=== PATIENT | female | born 1980 | race Caucasian/White ===

== ENCOUNTER 2020-08-20 07:09 | Emergency (ER) | payer OTHER ==
[~2020-08-20 07:09] MED LIST: ANTI-DIARRHEAL2 MG PO; AUGMENTIN 875-1 EACH PO; BENTYL10 MG PO; DIFLUCAN150 MG PO; NORCO 5-325 TA1 EACH PO; ZOFRAN4 MG SL
[2020-08-20] MEDS ORDERED: ETODOLAC500 MG PO (08:04)
[2020-08-20] MEDS ORDERED: TRAMADOL HCL50 MG PO (08:04)
== END 2020-08-20 08:47 | disposition home or self-care (01) ==
LOC: FER 07:09
DX: S89.92XA Unspecified injury of left lower leg, initial encounter (principal); F17.200 Nicotine dependence, unspecified, uncomplicated; W19.XXXA Unspecified fall, initial encounter; Y92.009 Unspecified place in unspecified non-institutional (private) residence as the place of occurrence of the external cause
CPT/HCPCS: 73564

== ENCOUNTER 2020-09-29 06:40 | Inpatient (IN) | payer OTHER ==
[~2020-09-29 06:40] MED LIST changes: +ETODOLAC500 MG PO; +TRAMADOL HCL50 MG PO
[2020-09-29 07:44] LABS: BASOPHIL 1.1 % (0-2); EOSINOPHIL 0.4 % (0-5); HCT 35.5 % (37.0-47.0); HGB 12.3 g/dl (12.5-16.0); LYMPHOCYTE 13.3 % (15-48); MCH 34.3 pg (25.0-31.0); MCHC 34.6 g/dL (32.0-36.0); MCV 98.9 fL (78.0-100.0); MONOCYTE 11.3 % (0-12); MPV 11.1 fL (6.0-9.5); NEUTROPHIL 73.5 % (41-80); NRBC 0; PLT 172 K/uL (150-400); RBC 3.59 M/uL (4.20-5.40); RDW 18.5 % (11.5-14.0); WBC 7.6 K/uL (4.0-10.5)
[2020-09-29 07:45] LABS: BILIRUBIN 3+ mg/dL (NEGATIVE); BLOOD NEGATIVE Ery/uL (NEGATIVE); CLARITY CLEAR (CLEAR); GLUCOSE (U) TRACE mg/dL (NORMAL); LEUKOCYTES NEGATIVE Leu/uL (NEGATIVE); NITRITE POSITIVE (NEGATIVE); PROTEIN 1+ mg/dL (NEGATIVE); SPECIFIC GRAVITY 1.025 (1.001-1.030)
[2020-09-29 07:46] LABS: COLOR AMBER (YELLOW)
[2020-09-29 07:53] LABS: BACTERIA 1+; URINARY RBC RARE
[2020-09-29 07:57] LABS: INR 1.1 (0.9-1.2); PROTHROMBIN TIME 13.5 SECONDS (11.4-13.6)
[2020-09-29 08:00] LABS: ALBUMIN 2.4 g/dL (3.4-5.0); BILIRUBIN - TOTAL 11.6 mg/dL (0.2-1.0); BUN/CREAT RATIO (CALC) 9.3 RATIO; CREATININE 0.54 mg/dL (0.51-0.95); GLOBULIN (CALCULATION) 4.3 g/dL; TOTAL PROTEIN 6.7 g/dL (6.4-8.2)
[2020-09-30 06:27] LABS: BASOPHIL 0.7 % (0-2); EOSINOPHIL 0.9 % (0-5); HCT 29.1 % (37.0-47.0); HGB 9.9 g/dl (12.5-16.0); LYMPHOCYTE 16.5 % (15-48); MCH 34.3 pg (25.0-31.0); MCV 100.7 fL (78.0-100.0); MONOCYTE 12.7 % (0-12); MPV 11.4 fL (6.0-9.5); NEUTROPHIL 68.8 % (41-80); NRBC 0; PLT 138 K/uL (150-400); RBC 2.89 M/uL (4.20-5.40); RDW 19.2 % (11.5-14.0); WBC 5.6 K/uL (4.0-10.5)
[2020-09-30 06:40] LABS: INR 1.26 (0.9-1.2)
[2020-09-30 06:50] LABS: ALBUMIN 1.8 g/dL (3.4-5.0); BILIRUBIN - DIRECT 9.1 mg/dL (0.00-0.20); BILIRUBIN - TOTAL 10.5 mg/dL (0.2-1.0); CREATININE 0.5 mg/dL (0.51-0.95); GLOBULIN (CALCULATION) 3.3 g/dL; MAGNESIUM 1.9 mg/dL (1.8-2.4); POTASSIUM 3.2 mmol/L (3.5-5.1); TOTAL PROTEIN 5.1 g/dL (6.4-8.2)
[2020-10-01 07:38] LABS: HCT 29.9 % (37.0-47.0); HGB 10.1 g/dl (12.5-16.0); MCH 34.6 pg (25.0-31.0); MCHC 33.8 g/dL (32.0-36.0); MCV 102.4 fL (78.0-100.0); MPV 11.1 fL (6.0-9.5); RBC 2.92 M/uL (4.20-5.40); RDW 18.7 % (11.5-14.0); WBC 4.3 K/uL (4.0-10.5)
[2020-10-01 07:44] LABS: INR 1.28 (0.9-1.2); PROTHROMBIN TIME 15.2 SECONDS (11.4-13.6)
[2020-10-01 07:52] LABS: ALBUMIN 1.7 g/dL (3.4-5.0); BILIRUBIN - TOTAL 10.3 mg/dL (0.2-1.0); BUN/CREAT RATIO (CALC) 7.8 RATIO; CREATININE 0.51 mg/dL (0.51-0.95); GLOBULIN (CALCULATION) 3.4 g/dL; MAGNESIUM 1.8 mg/dL (1.8-2.4); POTASSIUM 4.1 mmol/L (3.5-5.1); TOTAL PROTEIN 5.1 g/dL (6.4-8.2)
[2020-10-01 08:10] LABS: HBSAG SCREEN Negative (Negative); HEP A AB, IGM Negative (Negative); HEP B CORE AB, IGM Negative (Negative); HEP C VIRUS AB <0.1 (0.0-0.9)
[2020-10-02 08:58] LABS: HCT 30.5 % (37.0-47.0); HGB 10.5 g/dl (12.5-16.0); MCH 35.2 pg (25.0-31.0); MCHC 34.4 g/dL (32.0-36.0); MCV 102.3 fL (78.0-100.0); MPV 10.8 fL (6.0-9.5); RBC 2.98 M/uL (4.20-5.40); RDW 18.9 % (11.5-14.0); WBC 5.5 K/uL (4.0-10.5)
[2020-10-02 09:16] LABS: ALBUMIN 1.8 g/dL (3.4-5.0); BUN/CREAT RATIO (CALC) 8.2 RATIO; CREATININE 0.49 mg/dL (0.51-0.95); GLOBULIN (CALCULATION) 3.8 g/dL; MAGNESIUM 1.7 mg/dL (1.8-2.4); TOTAL PROTEIN 5.6 g/dL (6.4-8.2)
[2020-10-02 09:23] LABS: BILIRUBIN - TOTAL 11.4 mg/dL (0.2-1.0)
[2020-10-03 07:39] LABS: HGB 9.8 g/dl (12.5-16.0); MCHC 32.7 g/dL (32.0-36.0); MCV 104.2 fL (78.0-100.0); MPV 10.6 fL (6.0-9.5); RBC 2.88 M/uL (4.20-5.40); RDW 19.1 % (11.5-14.0); WBC 5.1 K/uL (4.0-10.5)
[2020-10-03 07:42] LABS: INR 1.37 (0.9-1.2); PTT 41.7 SECONDS (22.2-34.7)
[2020-10-03 07:48] LABS: ALBUMIN 1.6 g/dL (3.4-5.0); BILIRUBIN - TOTAL 11.6 mg/dL (0.2-1.0); BUN/CREAT RATIO (CALC) 10.4 RATIO; CREATININE 0.48 mg/dL (0.51-0.95); GLOBULIN (CALCULATION) 3.4 g/dL; POTASSIUM 3.6 mmol/L (3.5-5.1)
--- NOTE | 2020-10-03 14:47 | NUR ---
OBSERVED PARACENTESIS AT BEDSIDE WITH EMY GRAY, [employer]. SPECIMEN SENT TO LAB. 3050 ML OF FLUID REMOVED. PT TOLERATED PROCEDURE WELL AND FEELS RELIEF. OBSERVED EMY HOLD PRESSURE FOR 5 MINUTES WITH 4X4 AND APPLY BANDAID.
[2020-10-03 14:59] LABS: WBC (FLUID) 49 WBC/uL
[2020-10-03 15:12] LABS: CLARITY (FLUID) CLEAR; COLOR (FLUID) YELLOW
[2020-10-03 15:13] LABS: RBC (FLUID) 60 RBC/uL
[2020-10-04 09:01] LABS: HCT 30.1 % (37.0-47.0); HGB 10.2 g/dl (12.5-16.0); MCH 34.6 pg (25.0-31.0); MCHC 33.9 g/dL (32.0-36.0); MPV 10.6 fL (6.0-9.5); RBC 2.95 M/uL (4.20-5.40); RDW 19.1 % (11.5-14.0); WBC 5.7 K/uL (4.0-10.5)
[2020-10-04 09:19] LABS: ALBUMIN 1.6 g/dL (3.4-5.0); BILIRUBIN - TOTAL 12.7 mg/dL (0.2-1.0); BUN/CREAT RATIO (CALC) 7.8 RATIO; CREATININE 0.51 mg/dL (0.51-0.95); GLOBULIN (CALCULATION) 3.3 g/dL; POTASSIUM 2.9 mmol/L (3.5-5.1); TOTAL PROTEIN 4.9 g/dL (6.4-8.2)
[2020-10-05 08:01] LABS: ALBUMIN 1.4 g/dL (3.4-5.0); BUN/CREAT RATIO (CALC) 11.5 RATIO; CREATININE 0.52 mg/dL (0.51-0.95); GLOBULIN (CALCULATION) 3.4 g/dL; MAGNESIUM 1.6 mg/dL (1.8-2.4); POTASSIUM 3.3 mmol/L (3.5-5.1); TOTAL PROTEIN 4.8 g/dL (6.4-8.2)
[2020-10-06] MEDS ORDERED: FUROSEMIDE 40MG40 MG PO (15:47)
[2020-10-06] MEDS ORDERED: SPIRONOLACTONE50 MG PO (15:47)
[2020-10-06] MEDS ORDERED: NORCO 5-325 TA1 EACH PO (15:47)
[2020-10-06] MEDS ORDERED: CEFDINIR300 MG PO (16:04)
== END 2020-10-06 16:51 | disposition home or self-care (01) | DRG 433 ==
LOC: FER 06:40 → FMS 11:17
PROVIDERS: Emergency Medicine; ADMIT Internal Medicine
PROC: 0W9G3ZZ Drainage of Peritoneal Cavity, Percutaneous Approach (ICD-10-PCS; principal; 2020-10-03)
DX: K70.11 Alcoholic hepatitis with ascites (principal); N30.00 Acute cystitis without hematuria; F10.139 Alcohol abuse with withdrawal, unspecified; K76.6 Portal hypertension; E80.6 Other disorders of bilirubin metabolism; Z20.822 Contact with and (suspected) exposure to COVID-19; K75.81 Nonalcoholic steatohepatitis (NASH); D64.9 Anemia, unspecified; E87.6 Hypokalemia; E83.42 Hypomagnesemia; R16.0 Hepatomegaly, not elsewhere classified; K29.70 Gastritis, unspecified, without bleeding; K29.80 Duodenitis without bleeding; Z83.3 Family history of diabetes mellitus; Z82.49 Family history of ischemic heart disease and other diseases of the circulatory system; F17.210 Nicotine dependence, cigarettes, uncomplicated; K59.00 Constipation, unspecified
CPT/HCPCS: 36415; 71045; 74181; 80053; 80074; 81001; 82140; 82248; 82607; 83690; 83735; 84157; 85025; 85610; 85730; 87070; 87205; 89051; G0480; J2060; J3411; J3475; J7030; Q9967; U0002

== ENCOUNTER 2020-10-13 06:43 | Emergency (ER) | payer OTHER ==
[~2020-10-13 06:43] MED LIST changes: +CEFDINIR300 MG PO; +FUROSEMIDE 40MG40 MG PO; +SPIRONOLACTONE50 MG PO
[2020-10-13 07:52] LABS: EOSINOPHIL 0.6 % (0-5); HCT 38.6 % (37.0-47.0); MCH 33.6 pg (25.0-31.0); MCHC 33.7 g/dL (32.0-36.0); MCV 99.7 fL (78.0-100.0); MONOCYTE 12.1 % (0-12); MPV 10.4 fL (6.0-9.5); NEUTROPHIL 77.8 % (41-80); NRBC 0; PLT 346 K/uL (150-400); RBC 3.87 M/uL (4.20-5.40); RDW 16.8 % (11.5-14.0); WBC 10.9 K/uL (4.0-10.5)
[2020-10-13 07:53] LABS: BILIRUBIN 3+ mg/dL (NEGATIVE); BLOOD NEGATIVE Ery/uL (NEGATIVE); CLARITY CLEAR (CLEAR); COLOR YELLOW (YELLOW); GLUCOSE (U) NORMAL (NORMAL); LEUKOCYTES NEGATIVE Leu/uL (NEGATIVE); NITRITE NEGATIVE (NEGATIVE); PROTEIN NEGATIVE (NEGATIVE); SPECIFIC GRAVITY 1.015 (1.001-1.030); pH 7.5 (5.0-9.0)
[2020-10-13 08:02] LABS: ALBUMIN 2.1 g/dL (3.4-5.0); ALKALINE PHOSHATASE 271 U/L (46-116); ALT 18 U/L (14-59); AMYLASE 29 U/L (25-115); AST 75 U/L (15-37); BUN 8 mg/dL (7-18); BUN/CREAT RATIO (CALC) 11.4 RATIO; CHLORIDE 89 mmol/L (98-107); CO2 (BICARBONATE) 32 mmol/L (21-32); GLOBULIN (CALCULATION) 4.8 g/dL; GLUCOSE 86 mg/dL (74-106); LIPASE 108 U/L (73-393); TOTAL PROTEIN 6.9 g/dL (6.4-8.2)
[2020-10-13 08:07] LABS: POTASSIUM 2.2 mmol/L (3.5-5.1)
== END 2020-10-13 10:21 | disposition other institution (70) ==
LOC: FER 06:43
PROVIDERS: Emergency Medicine
DX: E87.6 Hypokalemia (principal); K70.10 Alcoholic hepatitis without ascites; F17.210 Nicotine dependence, cigarettes, uncomplicated; Z87.19 Personal history of other diseases of the digestive system
CPT/HCPCS: 36415; 80053; 81003; 82140; 82150; 83690; 85025; 93005; G0480; J2270; J2405; J3480; J7030

== ENCOUNTER 2021-07-18 09:29 | Emergency (ER) | payer OTHER ==
[2021-07-18 11:34] LABS: CORONAVIRUS 2019 SARS-COV-2 NEGATIVE (NEGATIVE); INFLUENZA A NAA NEGATIVE (NEGATIVE)
[2021-07-18] MEDS ORDERED: VIBRAMYCIN100 MG PO (12:16)
[2021-07-18] MEDS ORDERED: MUCINEX D TABL1 EACH PO (12:16)
[2021-07-18] MEDS ORDERED: MEDROL 4MG DOSEP4 MG PO (12:16)
[2021-07-18] MEDS ORDERED: ONDANSETRON ODT4 MG PO (12:16)
[2021-07-18] MEDS ORDERED: VENTOLIN HFA18 GM INH (12:16)
[2021-07-18] MEDS ORDERED: DIFLUCAN150 MG PO (12:51)
== END 2021-07-18 12:43 | disposition home or self-care (01) ==
LOC: FER 09:29
PROVIDERS: Emergency Medicine
DX: J40 Bronchitis, not specified as acute or chronic (principal); J32.9 Chronic sinusitis, unspecified; H66.92 Otitis media, unspecified, left ear; F17.210 Nicotine dependence, cigarettes, uncomplicated; Z20.822 Contact with and (suspected) exposure to COVID-19
CPT/HCPCS: 71046; U0002